=== PATIENT | female | born 1965 | race Caucasian/White ===

== ENCOUNTER 2016-03-28 12:09 | Emergency (ER) | payer BC ==
[2016-03-28 14:26] VITALS: BP 115/51
--- NOTE | 2016-03-28 14:50 | UC ---
Throat Pain/Nasal Joshua HPI - HPI Summary HPI Summary: Pt states she finished 10 days of amoxicillin 5 days ago for sinus infection and thought she was starting to get better but then finished the antibiotics. Now has continued symptoms with sinus congestion, dental pain, sore throat. Pt is lactating. - History of Current Complaint Chief Complaint: UCRespiratory Stated Complaint: SINUS Time Seen by Provider: 03/28/16 14:30 Hx Obtained From: Patient Hx Last Menstrual Period: 03/07/16 ?: No Onset/Duration: Gradual Onset, Lasting Weeks, Still Present Severity: Moderate Pain Intensity: 0 Pain Scale Used: 0-10 Numeric Cough: Nonproductive Associated Signs & Symptoms: Positive: Sinus Discomfort, Nasal Discharge - Allergies/Home Medications Allergies/Adverse Reactions: Allergies Allergy/AdvReac Type Severity Reaction Status Date / Time No Known Allergies Allergy Verified 03/28/16 14:20 Home Medications: Home Medications Acetaminophen [Acetaminophen Extra Stren] 1,000 mg PO Q6H PRN 03/28/16 [History Confirmed 03/28/16] Ibuprofen TAB* [Advil TAB*] 400 mg PO Q6H PRN 03/28/16 [History Confirmed ] Oxymetazoline 0.05% NASAL SPR* [Afrin 0.05% NASAL SPRAY*] 1 spray NASAL Q12H PRN 03/28/16 [History Confirmed 03/28/16] Vit W/ Fe Carbonyl-Fe [Pnv-Total] 2 cap PO DAILY 03/28/16 [History Confirmed 03/28/16] Vitamin TAB* 1 tab PO DAILY 03/28/16 [History Confirmed 03/28/16] PMH/Surg Hx/FS Hx/Imm Hx Respiratory History Of: Reports: Bronchitis - Surgical History Surgical History: Yes Surgery Procedure, Year, and Place: . ABD LAPROSCOPIC SXS - Family History Known Family History: Positive: Hypertension - Social History Lives: With Family Alcohol Use: Rare Substance Use Type: None Smoking Status (MU): Never Smoked Tobacco - Immunization History Most Recent Influenza Vaccination: November 2015 Review of Systems Constitutional: Negative Skin: Negative Eyes: Negative ENT: Dental Pain, Other - sinus congestion and discomfort Respiratory: Negative Cardiovascular: Negative Gastrointestinal: Negative Genitourinary: Negative Motor: Negative Neurovascular: Negative Musculoskeletal: Negative Neurological: Headache Psychological: Negative All Other Systems Reviewed And Are Negative: Yes Physical Exam Triage Information Reviewed: Yes Appearance: Well-Appearing, No Pain Distress, Ill-Appearing Vital Signs: Initial Vital Signs Temp 98.3 F 03/28/16 14:16 Pulse 78 03/28/16 14:16 Resp 16 03/28/16 14:16 BP 115/51 03/28/16 14:16 Pulse Ox 99 03/28/16 14:16 Vital Signs Reviewed: Yes Eyes: Positive: Conjunctiva Clear ENT: Positive: Hearing grossly normal, Pharyngeal erythema, Nasal congestion, TMs normal Neck: Positive: Supple, Nontender, No Lymphadenopathy Respiratory: Positive: Lungs clear, Normal breath sounds, No respiratory distress Cardiovascular: Positive: RRR, No Murmur, Pulses Normal, Brisk Capillary Refill Musculoskeletal: Positive: Strength Intact, ROM Intact Neurological: Positive: Alert, Muscle Tone Normal Psychological Exam: Normal Throat Pain/Nasal Course/Dx - Differential Dx/Diagnosis Differential Diagnosis/HQI/PQRI: Influenza, Otitis Media, Sinusitis Provider Diagnoses: sinusitis Discharge - Discharge Plan Condition: Stable Disposition: HOME Prescriptions: Amoxicillin/Clavulanate TAB* [Augmentin TAB 875*] 875 mg PO BID #28 tab Fluconazole 150 MG (NF) [Diflucan 150 mg (NF)] 150 mg PO ONCE #2 tab Patient Education Materials: Sinusitis (ED) Referrals: Holger Faulkner MD [Primary Care Provider] -
== END 2016-03-28 15:49 | disposition home or self-care (01) ==
LOC: UCCORT 12:09
DX: J32.9 Chronic sinusitis, unspecified (principal)
CPT/HCPCS: 99212; G0463

== ENCOUNTER 2016-10-25 15:20 | Emergency (ER) | payer BC ==
[2016-10-25 15:48] VITALS: BP 126/58
--- NOTE | 2016-10-25 16:01 | UC ---
Lower Extremity/Ankle HPI - HPI Summary HPI Summary: 50 yo female with right foot pain x 9 days now swollen on her feet all day no injury recalled - History of Current Complaint Chief Complaint: UCLowerExtremity Stated Complaint: SWOLLEN FOOT Time Seen by Provider: 10/25/16 15:52 Hx Obtained From: Patient Hx Last Menstrual Period: 10/04/16 Onset/Duration: Gradual Onset, Lasting Days Severity Initially: Mild Severity Currently: Moderate Pain Intensity: 4 Pain Scale Used: 0-10 Numeric Aggravating Factor(s): Standing, Ambulation Alleviating Factor(s): Rest, Elevation Able to Bear Weight: Yes - Allergies/Home Medications Allergies/Adverse Reactions: Allergies Allergy/AdvReac Type Severity Reaction Status Date / Time No Known Allergies Allergy Verified 10/25/16 15:48 Home Medications: Home Medications Control Pill 1 tab PO DAILY 10/25/16 [History Confirmed 10/25/16] Cetirizine* [ZyrTEC 10 MG TAB*] 1 tab PO DAILY 10/25/16 [History Confirmed 10/25] Sertraline* [Zoloft*] 50 mg PO DAILY 10/25/16 [History Confirmed 10/25/16] PMH/Surg Hx/FS Hx/Imm Hx Previously Healthy: Yes - Surgical History Surgical History: Yes Surgery Procedure, Year, and Place: [id number]. ABD LAPROSCOPIC SXS - Family History Known Family History: Positive: Hypertension, Other - no RA - Social History Alcohol Use: Occasionally Substance Use Type: None Smoking Status (MU): Never Smoked Tobacco - Immunization History Most Recent Influenza Vaccination: no Review of Systems Constitutional: Negative Skin: Negative Eyes: Negative ENT: Negative Respiratory: Negative Cardiovascular: Negative Gastrointestinal: Negative Genitourinary: Negative Motor: Negative Neurovascular: Negative Musculoskeletal: Arthralgia Neurological: Negative Psychological: Negative Is Patient Immunocompromised?: No All Other Systems Reviewed And Are Negative: Yes Physical Exam Triage Information Reviewed: Yes Appearance: Well-Appearing, No Pain Distress, Well-Nourished Vital Signs: Initial Vital Signs Temp 98 F 10/25/16 15:43 Pulse 62 10/25/16 15:43 Resp 16 10/25/16 15:43 BP 126/58 10/25/16 15:43 Pulse Ox 98 10/25/16 15:43 Vital Signs Reviewed: Yes Eyes: Positive: Conjunctiva Clear ENT: Positive: Hearing grossly normal. Negative: Nasal congestion, Nasal drainage, Trismus, Muffled/hoarse voice Neck: Positive: Supple, Nontender, No Lymphadenopathy Respiratory: Positive: Lungs clear, Normal breath sounds, No respiratory distress, No accessory muscle use Cardiovascular: Positive: RRR Musculoskeletal: Positive: Edema @ - dorsum or right foot, tender 2nd MT, n/ vasc intact, skin intact Neurological: Positive: Alert Psychological Exam: Normal Skin Exam: Normal Diagnostics - Radiology No standard instances Xray Interpretation: No Acute Changes Radiology Interpretation Completed By: Radiologist Lower Extremity Course/Dx - Differential Dx/Diagnosis Provider Diagnoses: right foot pain of uncertain cause. ? stress fx vs overuse injury vs sprain vs other Discharge - Discharge Plan Condition: Stable Disposition: HOME Patient Education Materials: Arthralgia (ED) Referrals: Lenin Kulkarni MD [Medical Doctor] - As Soon As Possible Estrella Vasquez MD [Primary Care Provider] - Additional Instructions: CAM boot when wt bearing ice twice daily advil or aleve I suggest othro follow Despite the negative XR you still could have a stress fx
--- NOTE | 2016-10-25 16:48 | RAD ---
HISTORY: Right foot pain and swelling, tender second metatarsal COMPARISONS: None VIEWS: 3, Frontal, lateral, and oblique views of the right foot FINDINGS: BONE DENSITY: Normal. BONES: There is no displaced fracture. There are plantar calcaneal enthesophytes JOINTS: There is no arthropathy. ALIGNMENT: There is no dislocation. SOFT TISSUES: Unremarkable. OTHER FINDINGS: None. IMPRESSION: NO ACUTE OSSEOUS INJURY. IF SYMPTOMS PERSIST, RECOMMEND REPEAT IMAGING.
== END 2016-10-25 17:13 | disposition home or self-care (01) ==
LOC: UCCORT 15:20
DX: M79.671 Pain in right foot (principal)
CPT/HCPCS: 99212; G0463

== ENCOUNTER 2016-12-29 11:45 | Emergency (ER) | payer BC ==
[2016-12-29 12:14] VITALS: BP 130/53
--- NOTE | 2016-12-29 12:25 | UC ---
Throat Pain/Nasal Joshua HPI - HPI Summary HPI Summary: Pt c/o nasal congestion, sinus pressure, pain, SPANN X 3 weeks. - History of Current Complaint Chief Complaint: UCRespiratory Stated Complaint: SINUS COMPLAINT Time Seen by Provider: 12/29/16 12:20 Hx Obtained From: Patient Hx Last Menstrual Period: 12/23/16 ?: No Onset/Duration: Gradual Onset, Lasting Weeks - 3 Severity: Mild Associated Signs & Symptoms: Positive: Sinus Discomfort Related History: Seasonal Allergies - Epiglottits Risk Factors Epiglottis Risk Factors: Negative - Allergies/Home Medications Allergies/Adverse Reactions: Allergies Allergy/AdvReac Type Severity Reaction Status Date / Time No Known Allergies Allergy Verified 12/29/16 12:05 Home Medications: Home Medications Ibuprofen TAB* [Advil TAB*] 400 mg PO Q6H PRN 12/29/16 [History Confirmed ] Norethindrone & Eth Estradiol [Dasetta 1-35 mg-Mcg] 1 tab PO DAILY [History Confirmed 12/29/16] PMH/Surg Hx/FS Hx/Imm Hx Previously Healthy: Yes - Surgical History Surgical History: Yes Surgery Procedure, Year, and Place: [id number]. ABD LAPROSCOPIC SXS. BENIGN BREAST LUMP - LUMPECTOMY - Family History Known Family History: Positive: Hypertension, Other - no RA - Social History Occupation: Employed Full-time Lives: With Family Alcohol Use: Occasionally Substance Use Type: None Smoking Status (MU): Never Smoked Tobacco Have You Smoked in the Last Year: No - Immunization History Most Recent Influenza Vaccination: NOV 2016 Vaccination Up to Date: Yes Review of Systems Constitutional: Negative Skin: Negative Eyes: Negative ENT: Sinus Congestion, Sinus Pain/Tenderness Respiratory: Negative Cardiovascular: Negative Gastrointestinal: Negative Genitourinary: Negative Motor: Negative Neurovascular: Negative Musculoskeletal: Negative Neurological: Headache Psychological: Negative Is Patient Immunocompromised?: No All Other Systems Reviewed And Are Negative: Yes Physical Exam Triage Information Reviewed: Yes Appearance: Well-Appearing Vital Signs: Initial Vital Signs Temp 98.1 F 12/29/16 12:08 Pulse 84 12/29/16 12:08 Resp 18 12/29/16 12:08 BP 130/53 12/29/16 12:08 Pulse Ox 99 12/29/16 12:08 Vital Signs Reviewed: Yes Eye Exam: Normal ENT Exam: Other ENT: Positive: Nasal congestion, Sinus tenderness Dental Exam: Normal Neck exam: Normal Respiratory Exam: Normal Cardiovascular Exam: Normal Musculoskeletal Exam: Normal Neurological Exam: Normal Psychological Exam: Normal Skin Exam: Normal Throat Pain/Nasal Course/Dx - Differential Dx/Diagnosis Differential Diagnosis/HQI/PQRI: Influenza, Sinusitis, URI Provider Diagnoses: sinusitis Discharge - Discharge Plan Condition: Stable Disposition: HOME Prescriptions: Amoxicillin PO (*) [Amoxicillin 875 MG (*)] 875 mg PO Q12H #20 tab Ibuprofen TAB* [Motrin TAB* 800 MG] 800 mg PO Q8H PRN #24 tab PRN Reason: Pain Pseudoephedrine TAB* [Sudafed TAB*] 60 mg PO Q12H #14 tab Patient Education Materials: Sinusitis (ED) Referrals: Estrella Vasquez MD [Primary Care Provider] - If Needed
== END 2016-12-29 12:36 | disposition home or self-care (01) ==
LOC: UCCORT 11:45
DX: J32.9 Chronic sinusitis, unspecified (principal)
CPT/HCPCS: 99212; G0463

== ENCOUNTER 2017-02-03 10:01 | Emergency (ER) | payer BC ==
[2017-02-03 12:00] VITALS: BP 127/50
--- NOTE | 2017-02-03 12:33 | UC ---
Throat Pain/Nasal Joshua HPI - HPI Summary HPI Summary: sinus pain for 6 weeks has been on 2 different antibiotics with out relief - History of Current Complaint Chief Complaint: UCRespiratory Stated Complaint: SINUS COMPLAINT Time Seen by Provider: 02/03/17 11:52 Hx Obtained From: Patient Hx Last Menstrual Period: 1.5 -2 weeks ?: No Onset/Duration: Sudden Onset, Lasting Weeks Severity: Moderate Cough: None Associated Signs & Symptoms: Positive: Sinus Discomfort - Allergies/Home Medications Allergies/Adverse Reactions: Allergies Allergy/AdvReac Type Severity Reaction Status Date / Time seasonal Allergy Congestion Uncoded 02/03/17 12:01 Home Medications: Home Medications Calcium And Fiber Gummy 2 tab PO DAILY 02/03/17 [History Confirmed 02/03/17] Lactobacillus [Probiotic] 1 cap PO DAILY 02/03/17 [History Confirmed 02/03/17] PMH/Surg Hx/FS Hx/Imm Hx Previously Healthy: Yes - Surgical History Surgical History: Yes Surgery Procedure, Year, and Place: [id number]; spider vein injections ~01/14/17. ABD LAPROSCOPIC SXS. BENIGN BREAST LUMP - LUMPECTOMY - Family History Known Family History: Positive: Hypertension, Other - no RA - Social History Occupation: Employed Full-time Lives: With Family Alcohol Use: Occasionally Substance Use Type: None Smoking Status (MU): Never Smoked Tobacco Have You Smoked in the Last Year: No - Immunization History Most Recent Influenza Vaccination: NOV 2016 Vaccination Up to Date: Yes Review of Systems Constitutional: Negative Skin: Negative Eyes: Negative ENT: Negative, Sinus Congestion, Sinus Pain/Tenderness Respiratory: Negative Cardiovascular: Negative Gastrointestinal: Negative Genitourinary: Negative Motor: Negative Neurovascular: Negative Musculoskeletal: Negative Neurological: Negative Psychological: Negative Is Patient Immunocompromised?: No All Other Systems Reviewed And Are Negative: Yes Physical Exam Triage Information Reviewed: Yes Appearance: Well-Appearing, No Pain Distress, Well-Nourished Vital Signs: Initial Vital Signs Temp 97.7 F 02/03/17 11:48 Pulse 66 02/03/17 11:48 Resp 18 02/03/17 11:48 BP 127/50 02/03/17 11:48 Pulse Ox 100 02/03/17 11:48 Vital Signs Reviewed: Yes Eye Exam: Normal Eyes: Positive: Conjunctiva Clear ENT Exam: Normal ENT: Positive: Normal ENT inspection, Hearing grossly normal, Pharynx normal, TMs normal, Sinus tenderness, Uvula midline. Negative: Nasal congestion, Nasal drainage, Tonsillar swelling, Tonsillar exudate, Trismus, Muffled voice, Hoarse voice, Dental tenderness Dental Exam: Normal Neck exam: Normal Neck: Positive: Supple, Nontender, No Lymphadenopathy Respiratory Exam: Normal Respiratory: Positive: Chest non-tender, Lungs clear, Normal breath sounds, No respiratory distress, No accessory muscle use Cardiovascular Exam: Normal Cardiovascular: Positive: RRR, No Murmur, Pulses Normal, Brisk Capillary Refill Musculoskeletal Exam: Normal Musculoskeletal: Positive: Strength Intact, ROM Intact, No Edema Neurological Exam: Normal Neurological: Positive: Alert, Muscle Tone Normal Psychological Exam: Normal Skin Exam: Normal Diagnostics - Radiology No standard instances Xray Interpretation: No Acute Changes Radiology Interpretation Completed By: Radiologist Throat Pain/Nasal Course/Dx - Course Assessment/Plan: tylenol, ibuprofen, Mucinex D, Flonase follow with pcp - Differential Dx/Diagnosis Provider Diagnoses: URI Discharge - Discharge Plan Condition: Stable Disposition: HOME Prescriptions: Fluticasone NASAL SPRAY 50MCG* [Flonase NASAL SPRAY 50MCG*] 2 spray BOTH NARES DAILY #1 btl Patient Education Materials: Guaifenesin/Phenylephrine (By mouth), Rhinosinusitis (ED), How to Use Nasal [place] (ED) Referrals: Estrella Vasquez MD [Primary Care Provider] - 1 Week
--- NOTE | 2017-02-03 13:04 | RAD ---
Indication: Generalized sinus pain. Recurrent infections. Post multiple courses of antibiotics. Comparison: No relevant prior exams available [place] the [facility] [place] for comparison. Technique: Noncontrast CT paranasal sinuses with multiplanar reformation. Report: Negative for significant mucosal thickening at the paranasal sinuses. Negative for air-fluid levels. Patent infundibula of the anterior ostiomeatal units. Patent nasal cavity and choana and unremarkable nasopharyngeal mucosal space contours. Only slight rightward deviation of the nasal septum. Clear mastoid air spaces. Unremarkable orbital contents. IMPRESSION: Negative CT of the paranasal sinuses.
== END 2017-02-03 13:24 | disposition home or self-care (01) ==
LOC: UCCORT 10:01
DX: J06.9 Acute upper respiratory infection, unspecified (principal); Z91.048 Other nonmedicinal substance allergy status
CPT/HCPCS: 70486; 99212; G0463

== ENCOUNTER 2017-04-23 07:33 | Emergency (ER) | payer BC ==
[2017-04-23 07:45] VITALS: BP 125/61
--- NOTE | 2017-04-23 07:55 | UC ---
Throat Pain/Nasal Joshua HPI - HPI Summary HPI Summary: sore throat x 10 days no fever, no chills, no nasal congestion or cough large swollen neck glands since yesterday +fatigue - History of Current Complaint Chief Complaint: UCRespiratory Stated Complaint: ST,SWOLLEN GLANDS Time Seen by Provider: 04/23/17 07:42 Hx Obtained From: Patient Hx Last Menstrual Period: 04/13/17 ?: No Onset/Duration: Gradual Onset, Lasting Days - 10, Still Present Severity: Moderate Pain Intensity: 8 Cough: None Associated Signs & Symptoms: Negative: Wheezing, Hoarseness, Sinus Discomfort, Nasal Discharge, Fever, Vomiting, Rash - Allergies/Home Medications Allergies/Adverse Reactions: Allergies Allergy/AdvReac Type Severity Reaction Status Date / Time seasonal Allergy Congestion Uncoded 04/23/17 07:41 Home Medications: Home Medications Sertraline* [Zoloft*] 50 mg PO DAILY 04/23/17 [History Confirmed 04/23/17] PMH/Surg Hx/FS Hx/Imm Hx Previously Healthy: Yes - Surgical History Surgical History: Yes Surgery Procedure, Year, and Place: [id number]; spider vein injections ~01/14/17. ABD LAPROSCOPIC SXS. BENIGN BREAST LUMP - LUMPECTOMY - Family History Known Family History: Positive: Hypertension, Other - no RA - Social History Alcohol Use: Occasionally Substance Use Type: None Smoking Status (MU): Never Smoked Tobacco Have You Smoked in the Last Year: No - Immunization History Most Recent Influenza Vaccination: NOV 2016 Vaccination Up to Date: Yes Review of Systems Constitutional: Negative Skin: Negative Eyes: Negative ENT: Sore Throat Respiratory: Negative Cardiovascular: Negative Gastrointestinal: Negative Is Patient Immunocompromised?: No All Other Systems Reviewed And Are Negative: Yes Physical Exam Triage Information Reviewed: Yes Appearance: Well-Appearing, No Pain Distress, Well-Nourished Vital Signs: Initial Vital Signs Temp 98.3 F 04/23/17 07:40 Pulse 79 04/23/17 07:40 Resp 16 04/23/17 07:40 BP 125/61 04/23/17 07:40 Pulse Ox 98 04/23/17 07:40 Vital Signs Reviewed: Yes Eye Exam: Normal Eyes: Positive: Conjunctiva Clear ENT: Positive: Normal ENT inspection, Hearing grossly normal, Pharyngeal erythema, TMs normal. Negative: Nasal congestion, Nasal drainage Neck: Positive: Supple, Tenderness @, Enlarged Nodes @ Respiratory: Positive: Chest non-tender, Lungs clear, Normal breath sounds Cardiovascular: Positive: RRR, No Murmur, Pulses Normal Abdominal Exam: Normal Abdomen Description: Positive: Nontender, No Organomegaly, Soft Bowel Sounds: Positive: Present Musculoskeletal Exam: Normal Musculoskeletal: Positive: Strength Intact, ROM Intact Neurological Exam: Normal Neurological: Positive: Alert Skin Exam: Normal Throat Pain/Nasal Course/Dx - Differential Dx/Diagnosis Provider Diagnoses: strep pharyngitis Discharge - Discharge Plan Condition: Stable Disposition: HOME Prescriptions: Amoxicillin PO (*) [Amoxicillin 875 MG (*)] 875 mg PO BID #20 tab Patient Education Materials: Strep Throat (ED) Referrals: Estrella Vasquez MD [Primary Care Provider] - 7 Days
== END 2017-04-23 08:02 | disposition home or self-care (01) ==
LOC: UCCORT 07:33
DX: J02.0 Streptococcal pharyngitis (principal)
CPT/HCPCS: 87651; 99212; G0463

== ENCOUNTER 2018-03-21 09:25 | Emergency (ER) | payer BC ==
[2018-03-21 09:45] VITALS: BP 140/54
--- NOTE | 2018-03-21 09:53 | UC ---
Respiratory Complaint HPI - HPI Summary HPI Summary: cough x 1 week cough is productive with yellow sputum runny nose, pnd, sore throat +fever, chills body aches started last night son + for flu - History of Current Complaint Chief Complaint: UCRespiratory Stated Complaint: COUGH, CONGESTION, FLU EXPOSURE Time Seen by Provider: 03/21/18 09:45 Hx Obtained From: Patient Hx Last Menstrual Period: "last week" ?: No Onset/Duration: Gradual Onset, Lasting Days - 7, Still Present, Worse Since - last night Timing: Constant Severity Initially: Moderate Severity Currently: Moderate Pain Intensity: 0 Character: Cough: Productive Aggravating Factors: Exertion, Deep Breaths Alleviating Factors: Nothing Associated Signs And Symptoms: Positive: Fever, Chills, URI, Nasal Congestion. Negative: Dyspnea, Pleuritic Chest Pain, Wheezing, Hemoptysis, Dizziness, Calf Pain, Calf Swelling - Allergies/Home Medications Allergies/Adverse Reactions: Allergies Allergy/AdvReac Type Severity Reaction Status Date / Time seasonal Allergy Congestion Uncoded 03/21/18 09:41 PMH/Surg Hx/FS Hx/Imm Hx Psychological History: Anxiety - Surgical History Surgical History: Yes Surgery Procedure, Year, and Place: [id number]; spider vein injections ~01/14/17. ABD LAPROSCOPIC SXS. BENIGN BREAST LUMP - LUMPECTOMY - Family History Known Family History: Positive: Hypertension, Other - no RA - Social History Alcohol Use: Occasionally Substance Use Type: None Smoking Status (MU): Never Smoked Tobacco Have You Smoked in the Last Year: No - Immunization History Most Recent Influenza Vaccination: NOV 2016 Vaccination Up to Date: Yes Review of Systems All Other Systems Reviewed And Are Negative: Yes Constitutional: Positive: Fever, Chills, Fatigue Skin: Positive: Negative Eyes: Positive: Negative ENT: Positive: Sore Throat, Nasal Discharge Respiratory: Positive: Cough Cardiovascular: Positive: Negative Musculoskeletal: Positive: Arthralgia, Myalgia Is Patient Immunocompromised?: No Physical Exam Triage Information Reviewed: Yes Appearance: Well-Appearing, No Pain Distress, Well-Nourished Vital Signs: Initial Vital Signs Temp 100 F 03/21/18 09:39 Pulse 100 03/21/18 09:39 Resp 18 03/21/18 09:39 BP 140/54 03/21/18 09:39 Pulse Ox 98 02/12/19 09:39 Vital Signs Reviewed: Yes Eye Exam: Normal Eyes: Positive: Conjunctiva Clear ENT: Positive: Normal ENT inspection, Hearing grossly normal, Pharynx normal, Nasal congestion, TMs normal. Negative: Pharyngeal erythema, TM bulging, TM dull, TM red, Tonsillar swelling, Tonsillar exudate Neck: Positive: Supple, Nontender, No Lymphadenopathy Respiratory: Positive: Chest non-tender, Lungs clear, Normal breath sounds Cardiovascular: Positive: Tachycardia Abdomen Description: Positive: Nontender, Soft. Negative: CVA Tenderness (R), CVA Tenderness (L), Distended, Guarding Bowel Sounds: Positive: Present UC Diagnostic Evaluation - Laboratory O2 Sat by Pulse Oximetry: 98 Respiratory Course/Dx - Differential Dx/Diagnosis Provider Diagnosis: Influenza Discharge - Sign-Out/Discharge Documenting (check all that apply): Patient Departure All imaging exams completed and their final reports reviewed: No Studies - Discharge Plan Condition: Stable Disposition: HOME Prescriptions: Oseltamivir CAP* [Tamiflu CAP*] 75 mg PO BID #10 cap Patient Education Materials: Influenza (ED) Referrals: Estrella Vasquez MD [Primary Care Provider] - If Needed - Billing Disposition and Condition Condition: STABLE Disposition: Home
[2018-03-21 10:02] LABS: Influenza A Molecular POSITIVE (Negative)
== END 2018-03-21 10:10 | disposition home or self-care (01) ==
LOC: UCCORT 09:25
DX: J11.1 Influenza due to unidentified influenza virus with other respiratory manifestations (principal); Z91.09 Other allergy status, other than to drugs and biological substances
CPT/HCPCS: 99212; G0463

== ENCOUNTER 2018-04-07 07:17 | Emergency (ER) | payer BC ==
[2018-04-07 07:27] VITALS: BP 140/75
--- NOTE | 2018-04-07 07:37 | UC ---
Respiratory Complaint HPI - HPI Summary HPI Summary: 52 yo female was diagnosed with the flu about three weeks ago Initially felt improved now worse cough worsening now productive of thick phelgm no f/c no n/v/d - History of Current Complaint Chief Complaint: UCRespiratory Stated Complaint: COUGH Time Seen by Provider: 04/07/18 07:30 Hx Obtained From: Patient Hx Last Menstrual Period: "Two and a half weeks ago, maybe" Onset/Duration: Gradual Onset, Lasting Weeks Timing: Constant Severity Initially: Mild Severity Currently: Moderate Pain Intensity: 0 Character: Cough: Productive Aggravating Factors: Deep Breaths, Recumbent Position Associated Signs And Symptoms: Positive: Nasal Congestion - Allergies/Home Medications Allergies/Adverse Reactions: Allergies Allergy/AdvReac Type Severity Reaction Status Date / Time seasonal Allergy Congestion Uncoded 04/07/18 07:24 Home Medications: Home Medications Calcium Carbonate [Calcium/C/D] 2 chw PO DAILY 04/07/18 [History Confirmed 04/07] Vitamin THERAPEUTIC TAB* [Theragran TAB*] 1 tab PO DAILY 04/07/18 [History Confirmed 04/07/18] PMH/Surg Hx/FS Hx/Imm Hx Previously Healthy: Yes Respiratory History: Bronchitis - Surgical History Surgical History: Yes Surgery Procedure, Year, and Place: [id number]; spider vein injections ~01/14/17. ABD LAPROSCOPIC SXS. BENIGN BREAST LUMP - LUMPECTOMY - Family History Known Family History: Positive: Hypertension, Other - no RA - Social History Alcohol Use: Occasionally Substance Use Type: None Smoking Status (MU): Never Smoked Tobacco Have You Smoked in the Last Year: No - Immunization History Most Recent Influenza Vaccination: NOV 2016 Vaccination Up to Date: Yes Review of Systems All Other Systems Reviewed And Are Negative: Yes Constitutional: Positive: Fatigue Skin: Positive: Negative Eyes: Positive: Negative ENT: Positive: Negative Respiratory: Positive: Cough Cardiovascular: Positive: Negative Gastrointestinal: Positive: Negative Genitourinary: Positive: Negative Motor: Positive: Negative Neurovascular: Positive: Negative Musculoskeletal: Positive: Negative Neurological: Positive: Negative Psychological: Positive: Negative Is Patient Immunocompromised?: No Physical Exam Triage Information Reviewed: Yes Appearance: Well-Appearing, No Pain Distress, Well-Nourished Vital Signs: Initial Vital Signs Temp 97.4 F 04/07/18 07:23 Pulse 89 04/07/18 07:23 Resp 16 03/01/19 07:23 BP 140/75 04/07/18 07:23 Pulse Ox 99 04/07/18 07:23 Vital Signs Reviewed: Yes Eyes: Positive: Conjunctiva Clear ENT: Positive: Hearing grossly normal, TMs normal, Uvula midline. Negative: Nasal congestion, Nasal drainage, Tonsillar swelling, Tonsillar exudate, Trismus , Muffled voice, Hoarse voice, Sinus tenderness Neck: Positive: Supple, Nontender, No Lymphadenopathy Respiratory: Positive: Normal breath sounds, No respiratory distress, No accessory muscle use, Respiratory distress Cardiovascular: Positive: RRR, No Murmur Musculoskeletal: Positive: ROM Intact, No Edema Neurological Exam: Normal Neurological: Positive: Alert Psychological Exam: Normal Skin Exam: Normal Respiratory Course/Dx - Course Course Of Treatment: pulse ox 99% RA comment: normal/not hypoxic - Differential Dx/Diagnosis Provider Diagnosis: Acute bronchitis Discharge - Sign-Out/Discharge Documenting (check all that apply): Patient Departure All imaging exams completed and their final reports reviewed: No Studies - Discharge Plan Condition: Stable Disposition: HOME Prescriptions: Amoxicillin/Clavulanate TAB* [Augmentin TAB 875*] 875 mg PO BID #14 tab Benzonatate CAP* [Tessalon CAP*] 100 - 200 mg PO TID PRN #28 cap PRN Reason: Cough Fluconazole 150 MG (NF) [Diflucan 150 mg (NF)] 150 mg PO ONCE #1 tab Patient Education Materials: Acute Bronchitis (ED) Referrals: Estrella Vasquez MD [Primary Care Provider] - 5 Days (if not better) - Billing Disposition and Condition Condition: STABLE Disposition: Home
== END 2018-04-07 07:48 | disposition home or self-care (01) ==
LOC: UCCORT 07:17
DX: J20.9 Acute bronchitis, unspecified (principal); Z91.09 Other allergy status, other than to drugs and biological substances
CPT/HCPCS: 99212; G0463

== ENCOUNTER 2018-08-07 09:30 | Emergency (ER) | payer BC ==
[2018-08-07 09:52] VITALS: BP 127/48
[2018-08-07] MEDS ORDERED: predniSONE TAB* 20 MG PO ONE (10:05)
[2018-08-07] MEDS ORDERED: Albuterol/Ipratropium NEB.SOL* Albuterol 2.5 MG/Ipratropium 0.5 MG 3 ML INH ONE (10:06)
--- NOTE | 2018-08-07 10:06 | ED ---
Throat Pain/Nasal Congestion - HPI Summary HPI Summary: 52 yr old female with the complaint cough, congestion, production of yellow sputum. The patient has been feeling ill for several days, about a week. The patient denies fever, chills. 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 She has no SOB. - History of Current Complaint Chief Complaint: UCGeneralIllness Time Seen by Provider: 08/07/18 09:58 - Allergies/Home Medications Allergies/Adverse Reactions: Allergies Allergy/AdvReac Type Severity Reaction Status Date / Time seasonal Allergy Congestion Uncoded 04/07/18 07:24 PMH/Surg Hx/FS Hx/Imm Hx Cardiovascular History: Reports: Other Cardiovascular Problems/Disorders - Hx of Mitral valve prolapse, Heart murmur. - Cancer History Cancer Type, Location and Year: PT WAS ON LOVENOX FOR CURRENT -- STOPPED AT 28 WKS. Hx Chemotherapy: No Hx Radiation Therapy: No - Surgical History Surgery Procedure, Year, and Place: [id number]; spider vein injections ~01/14/17. ABD LAPROSCOPIC SXS. BENIGN BREAST LUMP - LUMPECTOMY - Immunization History Date of Tetanus Vaccine: 3 years ago Infectious Disease History: No Infectious Disease History: Denies: Traveled Outside the [place] in Last 30 Days - Family History Known Family History: Positive: Hypertension, Other - no RA - Social History Occupation: Employed Full-time Alcohol Use: Occasionally Substance Use Type: Reports: None Smoking Status (MU): Never Smoked Tobacco Have You Smoked in the Last Year: No Review of Systems Constitutional: Negative Positive: Sore Throat, Nasal Discharge Positive: Cough All Other Systems Reviewed And Are Negative: Yes Physical Exam Triage Information Reviewed: Yes Vital Signs On Initial Exam: Initial Vitals Temp Pulse Resp BP Pulse Ox 98.5 F 71 16 127/48 99 08/07/18 09:48 08/07/18 09:48 08/07/18 09:48 08/07/18 09:48 08/07/18 09:48 Vital Signs Reviewed: Yes Appearance: Positive: Well-Appearing, No Pain Distress Skin: Positive: Warm, Skin Color Reflects Adequate Perfusion Head/Face: Positive: Normal Head/Face Inspection Eyes: Positive: EOMI ENT: Positive: Nasal congestion, TM red - right with retraction TM Neck: Positive: Nontender Respiratory/Lung Sounds: Positive: Clear to Auscultation, Breath Sounds Present Cardiovascular: Positive: RRR. Negative: Murmur Abdomen Description: Negative: Distended Musculoskeletal: Positive: Strength/ROM Intact. Negative: Edema Left, Edema Right Neurological: Positive: Sensory/Motor Intact, Alert, Oriented to Person Place, Time, CN Intact II-III, Speech Normal Diagnostics - Vital Signs Vital Signs Temp Pulse Resp BP Pulse Ox 08/07/18 09:48 98.5 F 71 16 127/48 99 - Laboratory Lab Statement: Any lab studies that have been ordered have been reviewed, and results considered in the medical decision making process. EENT Course/Dx - Course Course Of Treatment: 52 yr old with right otitis media, and acute bronchitis. She feels better after the nebs. WIll DC home on zithromax, and prednisone and albuterol mdi. - Diagnoses Provider Diagnoses: Otitis media, right, Acute bronchitis Discharge - Sign-Out/Discharge Documenting (check all that apply): Patient Departure All imaging exams completed and their final reports reviewed: No Studies - Discharge Plan Condition: Good Disposition: HOME Prescriptions: Albuterol HFA INHALER* [Ventolin HFA Inhaler*] 1 - 2 puff INH Q6H PRN #1 mdi PRN Reason: Cough Azithromycin TAB* [Zithromax TAB (Z-EMMIE) 250 mg #6 tabs] 2 tab PO .TODAY, THEN 1 DAILY #1 emmie predniSONE TAB* [Deltasone 20 MG TAB*] 40 mg PO DAILY #8 tab Patient Education Materials: Ear Infection (ED), Acute Bronchitis (ED) Referrals: Estrella Vasquez MD [Primary Care Provider] - 2 Days - Billing Disposition and Condition Condition: GOOD Disposition: Home
== END 2018-08-07 11:27 | disposition home or self-care (01) ==
LOC: UCCORT 09:30
DX: H66.91 Otitis media, unspecified, right ear (principal); J20.9 Acute bronchitis, unspecified; I34.1 Nonrheumatic mitral (valve) prolapse; R01.1 Cardiac murmur, unspecified
CPT/HCPCS: 99212; A9270-GY; G0463; J7512

== ENCOUNTER 2018-08-10 09:59 | Emergency (ER) | payer BC ==
[2018-08-10 10:27] VITALS: BP 120/54
--- NOTE | 2018-08-10 10:50 | UC ---
Respiratory Complaint HPI - HPI Summary HPI Summary: URI symptoms x 10 days. Seen 3 days ago and placed on zithromax. Given prednisone and an inhaler. - History of Current Complaint Chief Complaint: UCRespiratory Stated Complaint: COUGH,CONGESTION Time Seen by Provider: 08/10/18 10:44 Hx Obtained From: Patient Hx Last Menstrual Period: 07/21/18 ?: No Onset/Duration: Sudden Onset, Lasting Days - 10, Still Present Timing: Constant Severity Initially: Mild Severity Currently: Moderate Pain Intensity: 0 Character: Cough: Nonproductive Alleviating Factors: Bronchodilator Associated Signs And Symptoms: Positive: Wheezing, URI, Nasal Congestion, Hoarseness. Negative: Fever, Chills Related History: Seasonal Allergies - Allergies/Home Medications Allergies/Adverse Reactions: Allergies Allergy/AdvReac Type Severity Reaction Status Date / Time seasonal Allergy Congestion Uncoded 08/10/18 10:21 Home Medications: Home Medications guaiFENesin [Mucinex] 600 mg PO ONCE PRN 08/10/18 [History Confirmed 08/10/18] PMH/Surg Hx/FS Hx/Imm Hx Previously Healthy: Yes Other Cardiovascular History: mitral valve prolapse. - Surgical History Surgical History: Yes Surgery Procedure, Year, and Place: [id number]; spider vein injections ~01/14/17. ABD LAPROSCOPIC SXS. BENIGN BREAST LUMP - LUMPECTOMY - Family History Known Family History: Positive: Hypertension, Other - no RA Negative: Cardiac Disease, Diabetes - Social History Occupation: Employed Full-time Lives: With Family Alcohol Use: Occasionally Substance Use Type: None Smoking Status (MU): Never Smoked Tobacco Have You Smoked in the Last Year: No - Immunization History Most Recent Influenza Vaccination: NOV 2016 Vaccination Up to Date: Yes Review of Systems All Other Systems Reviewed And Are Negative: Yes Constitutional: Positive: Fatigue ENT: Positive: Sore Throat - with coughing Respiratory: Positive: Shortness Of Breath, Cough Cardiovascular: Positive: Chest Pain - just with coughing. Is Patient Immunocompromised?: No Physical Exam Triage Information Reviewed: Yes Appearance: No Pain Distress, Well-Nourished, Ill-Appearing Vital Signs: Initial Vital Signs Temp 98.5 F 08/10/18 10:23 Pulse 72 08/10/18 10:23 Resp 17 08/10/18 10:23 BP 120/54 08/10/18 10:23 Pulse Ox 99 08/10/18 10:23 Vital Signs Reviewed: Yes Eyes: Positive: Conjunctiva Clear ENT: Positive: Pharynx normal, TMs normal Neck exam: Normal Respiratory: Positive: Lungs clear, Wheezing - expiratory wheezes with coughing. Cardiovascular Exam: Normal Musculoskeletal Exam: Normal Neurological Exam: Normal Psychological Exam: Normal Skin Exam: Normal Respiratory Course/Dx - Differential Dx/Diagnosis Differential Diagnosis/HQI/PQRI: Asthma, Laryngitis, Lower Resp Infection, Sinusitis Provider Diagnosis: Upper respiratory infection, acute, Bronchospasm, acute Discharge - Sign-Out/Discharge Documenting (check all that apply): Patient Departure All imaging exams completed and their final reports reviewed: No Studies - Discharge Plan Condition: Stable Disposition: HOME Prescriptions: predniSONE TAB* [Deltasone TAB*] 50 mg PO DAILY #7 tab Patient Education Materials: Upper Respiratory Infection (DC), Bronchospasm (ED ), Prednisone (By mouth) Referrals: Estrella Vasquez MD [Primary Care Provider] - Additional Instructions: Continue to use the inhaler for the wheezing/ coughing fits, especially at night. - Billing Disposition and Condition Condition: STABLE Disposition: Home
== END 2018-08-10 11:11 | disposition home or self-care (01) ==
LOC: UCCORT 09:59
DX: J06.9 Acute upper respiratory infection, unspecified (principal); J98.01 Acute bronchospasm; I34.1 Nonrheumatic mitral (valve) prolapse
CPT/HCPCS: 99212; G0463